=== PATIENT | female | born 1990 | race Caucasian/White ===

== ENCOUNTER 2017-04-25 21:34 | Emergency (ER) | payer OTHER ==
[~2017-04-25] VITALS: Ht 154.9 cm; Wt 75.3 kg
--- NOTE | ~2017-04-25 | CR72 ---
[facility] A Service of [facility] RADIOLOGY TEXT RESULTS PATIENT: MARKY ROSALES LOCATION: [facility] : 86 UNIT #: [id number] AGE: [address]: Leif Addison MD SEX: F ORDER DR: [id number] [facility] [address] [place], [place] [address] [id number] MR#: [id number] Acc #: [id number] NAME: MARKY ROSALES : 1990 SEX: F STUDY DATE/TIME: 04/25/2017 23:31 UNIT: [facility] ROOM: STUDY DESCRIPTION: CR Chest Single View Portable Attending Physician: Emeterio Addison M.D. Ordering Physician: Ed Doctor [id number] [facility] Primary Care Physician: Primary Care Physician No MEDICAL IMAGING REPORT This report is preliminary unless electronic signature is present EXAM Portable chest, 04/25 23:31 hours INDICATIONS Shortness of air and chest pain tonight. FINDINGS A single AP portable view of the chest shows both lungs to be clear. The heart is normal in size. The mediastinal contour is normal. No significant bone abnormalities are seen. IMPRESSION Normal portable chest. Dictated by... Duc Manzano Jr., M.D. THIS IS AN ELECTRONICALLY VERIFIED REPORT Duc Manzano Jr., M.D. at 04/26/2017 8:50 PM JUAN/shaila TD: 04/26/2017 10:42 JOB #: [id number] MEDICAL IMAGING REPORT Page 1 of 1 COPY
--- NOTE | ~2017-04-25 | EKG ---
PATIENT: MARKY ROSALES UNIT #: [id number] Ventricular Rate: 74 BPM Atrial Rate: 74 BPM P-R Interval: 162 ms QRS Duration: 86 ms Q-T Interval: 352 ms QTC Calculation(Bezet): 390 ms P [place]: 61 degrees Calculated R [place]: 76 degrees Calculated T [place]: 57 degrees Diagnosis Line: Normal sinus rhythm Diagnosis Line: Normal ECG Diagnosis Line: Diagnosis Line: Confirmed by GIANNA HARVEY MD ([id number]) on Diagnosis Line: 04/28/2017 8:04:36 PM INTERPRETING MD: MICHAEL
[2017-04-25 23:16] LABS: POC - CKMB <1.0 ng/mL (0.0-7.9); POC - TROPONIN <0.05 ng/mL (<=0.05)
== END 2017-04-26 00:30 | disposition home or self-care (01) ==
LOC: CED 21:34
PROVIDERS: Emergency Medicine
DX: M94.0 Chondrocostal junction syndrome [Tietze] (principal)
CPT/HCPCS: 36415; 71010; 82553; 84484; 93005; 99285